=== PATIENT | male | born 1945 | race Caucasian/White ===

== ENCOUNTER 2024-02-10 07:25 | Day surgery (SDC) | payer MEDICARE ==
[2024-02-08 15:11] VITALS: BMI 18.6
[2024-02-10] MEDS ORDERED: Indocyanine Green 25 MG/10 ML VIAL ONE (07:31)
[2024-02-10 08:14] LABS: #Basophils 0.07 10x3/uL (0.0-0.2); #Eosinophils 0.26 10x3/uL (0.0-0.5); #Monocytes 0.76 10x3/uL (0.0-1.1); #Neutrophils 4.99 10x3/uL (1.5-8.4); %Basophils 0.9 % (0.0-2.0); %Eosinophils 3.4 % (0.0-6.0); %Lymphocytes 20.9 % (18.0-47.0); %Monocytes 9.8 % (0.0-10.0); %Neutrophils 64.6 % (40.0-75.0); Hematocrit 40.7 % (38.8-50.0); Hemoglobin 13.8 g/dL (13.5-17.5); Mean Corpuscular HGB CONC 33.9 g/dL (32.0-36.0); Mean Corpuscular Hemoglobin 32.5 pg (27.0-33.0); Mean Corpuscular Volume 95.8 fL (81.2-95.1); Platelet Count 202 10x3/uL (150-450); RBC Distribution Width 12.5 % (11.5-14.5); Red Blood Cell (RBC) Count 4.25 10x6/uL (4.32-5.72); White Blood Cell (WBC) Count 7.7 10x3/uL (3.5-10.5)
[2024-02-10] MEDS ORDERED: Lidocaine 1% PF 5 ML VIAL ONE (08:18)
[2024-02-10] MEDS ORDERED: Rocuronium Bromide 10 MG/ML (10ML VIAL) ONE (08:18)
[2024-02-10] MEDS ORDERED: PROPOFOL 20 ML ONE (08:18)
[2024-02-10 08:23] LABS: ALT (SGPT) 75 U/L (8-55); AST (SGOT) 60 U/L (5-34); Albumin 3.9 g/dL (3.4-4.8); Alkaline Phosphatase 93 U/L (40-110); Bilirubin, Direct 0.6 mg/dL (0.1-0.3); Bilirubin, Total 1.2 mg/dL (0.2-1.2); Protein, Total 7.1 g/dL (5.8-8.1)
[2024-02-10] MEDS ORDERED: Fentanyl 250 MCG/5 ML VIAL ONE ×2 (09:01→10:55)
[2024-02-10] MEDS ORDERED: Bupivacaine/Epinephrine 0.25% 30 ML VIAL ONE (09:03)
[2024-02-10] MEDS ORDERED: CEFAZOLIN 2 GM VIAL ONE (09:16)
[2024-02-10] MEDS ORDERED: Dexamethasone 4 mg/ml Vial ONE (09:37)
[2024-02-10] MEDS ORDERED: SUGAMMADEX SODIUM 200 MG/2 ML VIAL ONE (10:05)
[2024-02-10] MEDS ORDERED: Ondansetron PF 4 MG/2 ML Vial ONE (10:05)
[2024-02-10] MEDS ORDERED: Acetaminophen 500 MG TAB ONE (11:59)
[2024-02-10] MEDS ORDERED: Labetalol HCl 100 MG/20 ML VIAL ONE (12:10)
== END 2024-02-10 12:45 | disposition home or self-care (01) ==
LOC: CSHSDC 07:25
PROVIDERS: ATTEND Surgery
PROC: 0FT44ZZ Resection of Gallbladder, Percutaneous Endoscopic Approach (ICD-10-PCS; principal; 2024-02-10)
DX: K80.10 Calculus of gallbladder with chronic cholecystitis without obstruction (principal); I25.10 Atherosclerotic heart disease of native coronary artery without angina pectoris; E78.00 Pure hypercholesterolemia, unspecified; G20.A1 Parkinson's disease without dyskinesia, without mention of fluctuations; K21.9 Gastro-esophageal reflux disease without esophagitis; C61 Malignant neoplasm of prostate; G47.31 Primary central sleep apnea; Z90.49 Acquired absence of other specified parts of digestive tract; Z98.890 Other specified postprocedural states; Z88.5 Allergy status to narcotic agent; Z88.8 Allergy status to other drugs, medicaments and biological substances; Z79.82 Long term (current) use of aspirin; Z79.899 Other long term (current) drug therapy
CPT/HCPCS: 47562; 80076; 85025; C1889; J1100; J2405; J2704; J3010; 36415; 88304